=== PATIENT | male | born 1975 | race African-American/Black ===

== ENCOUNTER 2018-01-02 07:30 | Inpatient (IN) | payer OTHER ==
[~2018-01-02] VITALS: Ht 180.3 cm; Wt 101.2 kg
[~2018-01-02 07:30] MED LIST: Lidocaine 1% MPF 10mg/ml 5ml ONE; Midazolam 2mg/2ml Inj ONE; Phenylephrine 10mg/ml Vial ONE; ceFAZolin sod 2 GM in D5W 110 ML IVPB ONE; fentaNYL 100 mcg/2 mL IV ONE
--- NOTE | 2018-01-02 11:43 | Diagnostic Imaging Report ---
Indication: Back pain Comparison: None Findings: 3 views of the lumbar spine were obtained. There is mild anterolisthesis at L3-4. Mild narrowing of the disc noted at this level. The remainder the exam is negative. IMPRESSION: Mild anterolisthesis at L3-4
[2018-03-07] VITALS (8 sets, daily range): BP systolic 140–167; BP diastolic 79–92
[2018-03-07] MEDS ORDERED: ceFAZolin sod 2 GM in D5W 110 ML IVPB ONE (07:00)
[2018-03-07] MEDS ORDERED: Gelfoam Size TOPIC ONE (10:10)
[2018-03-07] MEDS ORDERED: Bupivacaine w/Epi 0.5% 30ml Vial INJ ONE (10:10)
[2018-03-07] MEDS ORDERED: Bacitracin 50000 Units Vial ONE ×2 (10:10→14:43)
[2018-03-07] MEDS ORDERED: Vancomycin 1gm vial IVPB ONE (10:10)
[2018-03-07] MEDS ORDERED: Heparin 1000 units/ml 1ml Vial ONE (10:13)
[2018-03-07] MEDS ORDERED: Thrombin 5000 units TOPIC ONE (10:18)
[2018-03-07] MEDS ORDERED: IBUPROFEN600 MG ORAL (11:12)
[2018-03-07] MEDS ORDERED: GABAPENTIN300 MG ORAL (11:12)
[2018-03-07] MEDS ORDERED: TRUVADA 200 MG1 EAC1 ORAL (11:12)
[2018-03-07] MEDS ORDERED: TRAMADOL HCL50 MG ORAL (11:12)
--- NOTE | 2018-03-07 12:06 | Anethesia Preoperative Eval ---
Wanda Paz MD 03/07/18 1206: Anesthesia Pre-op PMH/ROS General Date of Evaluation: Mar 07, 2018 Anesthesiologist: Todd ASA Score: ASA 1 Mallampati Score Class I : Soft palate, uvula, fauces, pillars visible Class II: Soft palate, uvula, fauces visible Class III: Soft palate, base of uvula visible Class IV: Only hard plate visible Mallampati Classification: Class II Surgeon: Harlan Diagnosis: Lumbar radiculopathy Surgical Procedure: TLIF L3-4 Anesthesia History: none Family History: no anesthesia problems Allergies: Coded Allergies: No Known Allergies (Unverified , 12/25/17) Patient NPO?: Yes NPO Date: Mar 06, 2018 NPO Time: 2358 Past Medical History Cardiovascular: Denies: HTN, CAD, NH, valve dz, arrhythmia, other Pulmonary: Denies: asthma, COPD, NKECHI, other Gastrointestinal/Genitourinary: Denies: GERD, CRI, ESRD, other Neurologic/Psychiatric: Denies: dementia, CVA, depression/anxiety, TIA, other Endocrine: Denies: DM, hypothyroidism, steroids, other HEENT: Denies: cataract (L), cataract (R), glaucoma, KOBUK (L), KOBUK (R), other Hematology/Immune: Denies: anemia, DVT, bleeding disorder, other Musculoskeletal/Integumentary: Denies: OA, RA, DJD, DDD, edema, other PSxH Narrative: Denies Anesthesia Pre-op Phys. Exam Physician Exam Last Vital Signs Date Time Temp Pulse Resp B/P (MAP) Pulse Ox O2 Delivery O2 Flow Rate FiO2 03/07/18 11:30 97.8 86 20 140/83 (102) 97 03/07/18 10:59 Room Air Constitutional: NAD Cardiovascular: RRR Respiratory: CTA Airway Exam Mallampati Score: Class II MO: limited ROM: full Teeth: intact Anesthesia Pre-op A/P Labs see chart Studies Pre-op Studies: EKG - sr Risk Assessment & Plan Assessment: ASA I Plan: GA Status Change Before Surgery: No Pre-Antibiotics Drug: Ron Morales MD 03/07/18 1520: Anesthesia Pre-op PMH/ROS General Allergies: Coded Allergies: No Known Allergies (Unverified , 12/25/17) Past Medical History Other: obesity - BMI 33 Wanda Paz MD Mar 07, 2018 12:06 Ron Ruiz MD Mar 07, 2018 15:20
[2018-03-07] MEDS ORDERED: Zemuron 50mg/5ml Inj IV ONE (12:28)
[2018-03-07] MEDS ORDERED: fentaNYL 100 mcg/2 mL IV ONE ×2 (12:29→16:16)
[2018-03-07] MEDS ORDERED: Midazolam 2mg/2ml Inj ONE ×2 (12:29→14:32)
[2018-03-07] MEDS ORDERED: Lidocaine 1% MPF 10mg/ml 5ml ONE (12:29)
[2018-03-07] MEDS ORDERED: NS Irrig 1000ml ONE (12:30)
[2018-03-07] MEDS ORDERED: LR 1000ml ONE (12:30)
[2018-03-07] MEDS ORDERED: Sterile Water Irrig 1000ml IRRIG ONE (12:30)
[2018-03-07] MEDS ORDERED: Propofol 1,000mg/ 100ml btl IV ONE (12:30)
--- NOTE | 2018-03-07 12:45 | Pre-Procedure Note/Attestation ---
Pre-Procedure Note/Attestation Complete Prior to Procedure Procedure Narrative: TLIF L34 with iliac bone marrow aspiration, posterolateral fusion, instrumentation, decompression Indications for Procedure Pre-Operative Diagnosis: lumbar radiculopathy and instability L34 Attestation I attest that I discussed the nature of the procedure; its benefits; risks and complications; and alternatives (and the risks and benefits of such alternatives ), prior to the procedure, with the patient (or the patient's legal financial representative). I attest that, if there was a reasonable possibility of needing a blood transfusion, the patient (or the patient's legal financial representative) was given the [facility] standardized written summary, pursuant to the Bashir [place] Blood Safety Act ([place] Health and Safety Code # 1645, as amended). I attest that I re-evaluated the patient just prior to the surgery and that there has been no change in the patient's H&P, except as documented below: Armond Claros MD Mar 07, 2018 12:45
[2018-03-07] MEDS ORDERED: Dexamethasone 4mg/ml vial ONE (14:31)
[2018-03-07] MEDS ORDERED: Lidocaine 1% Plain 30 ml INJ ONE (14:44)
[2018-03-07] MEDS ORDERED: Neostigmine 1mg/ml 10ml Inj ONE (14:44)
[2018-03-07] MEDS ORDERED: Glycopyrrolate 0.2mg/ml 1ml Vial ONE (14:44)
[2018-03-07] MEDS ORDERED: LR 1000ml 1,000 ML IVLG SCH (15:18)
--- NOTE | 2018-03-07 15:22 | Immediate Post-Op Evaluation ---
Immediate Post-Op Evalulation Immediate Post-Op Evalulation Procedure: TLIF L3-4 Date of Evaluation: Mar 07, 2018 Time of Evaluation: 17:55 IV Fluids: 1000 LR Blood Products: 0 Estimated Blood Loss: 150 Urinary Output: 200 Blood Pressure Systolic: 147 Blood Pressure Diastolic: 79 Pulse Rate: 90 Respiratory Rate: 16 O2 Sat by Pulse Oximetry: 100 Temperature (Fahrenheit): 99.5 Pain Score (1-10): 3 Nausea: No Vomiting: No Complications 0 Patient Status: awake, reacts, patent, extubated, none Hydration Status: adequate Dru Grams Ancef IV Given Within 1 Hr of Incision: Yes Time Given: 12:46 Ron Ruiz MD Mar 07, 2018 15:22
[2018-03-07] MEDS ORDERED: Ketorolac 30mg Inj IV PRN ×2 (15:30)
[2018-03-07] MEDS ORDERED: HYDROcodone/Acetamin 7.5/325 tab ORAL PRN (15:30)
[2018-03-07] MEDS ORDERED: Meperidine 50mg/ml Inj(FOR RIGORS ONLY) IVP PRN (15:30)
[2018-03-07] MEDS ORDERED: Hydromorphone 0.5mg/0.5ml inj IVP PRN (15:30)
[2018-03-07] MEDS ORDERED: fentaNYL 100 mcg/2 mL IV PRN (15:30)
[2018-03-07] MEDS ORDERED: LORazepam Inj 2mg/ml 1ml IV PRN (15:30)
[2018-03-07] MEDS ORDERED: Acetaminophen (Non formulary) 100 ML IV ONE (15:30)
[2018-03-07] MEDS ORDERED: oxyCODONE HCL/Acetaminophen 5/325mg ORAL PRN (15:30)
[2018-03-07] MEDS ORDERED: Metoclopramide 10mg/2ml Inj IVP PRN (15:30)
[2018-03-07] MEDS ORDERED: Norco 5mg/325mg tab ORAL PRN ×2 (15:30→17:45)
[2018-03-07] MEDS ORDERED: DiphenhydrAMINE 50mg/ml Inj IVP PRN (15:30)
[2018-03-07] MEDS ORDERED: Atropine Sulfate 0.4mg/ml inj IVP PRN (15:30)
[2018-03-07] MEDS ORDERED: Midazolam 2mg/2ml Inj IVP PRN (15:30)
[2018-03-07] MEDS ORDERED: Naloxone 0.4mg/ml Inj ONE (16:48)
--- NOTE | 2018-03-07 17:19 | Brief Operative Note ---
Immediate Post Operative Note Operative Note Pre-op Diagnosis: lumbar radiculopathy and instability L34 Procedure: TLIF L34 with iliac bone marrow aspiration Post-op Diagnosis: same as pre-op Findings: consistent w/pre-op dx studies Surgeon: Harlan [employer] Supervisor: Scott Anesthesiologist: Maximo Anesthesia: general Specimen: yes - L34 disc Complications: none Condition: stable Fluids: 1l Estimated Blood Loss: minimal - 150cc Drains: hemovac Implant(s) used?: Yes - Nuvasive adn RTI interbody Armond Claros MD Mar 07, 2018 17:19
[2018-03-07] MEDS ORDERED: HYDROmorphone 1mg/ml Carpuject SUBQ PRN (17:45)
--- NOTE | 2018-03-07 18:45 | Diagnostic Imaging Report ---
INDICATION: Pain, intraoperative TECHNIQUE: Intraoperative imaging Fluoroscopy time: 28.5 seconds Total dose: 0.41343 mGym2 Total number of images: 2 COMPARISON: None FINDINGS: Intraoperative images demonstrate posterior fusion hardware bridging L3 and L4, with an intervening disc spacer IMPRESSION: Intraoperative imaging, as described
[2018-03-07] MEDS: D5 1/2NS 1,000 ML IV SCH (20:12)
[2018-03-08] VITALS: BP 144/71
[2018-03-08] MEDS: ceFAZolin sod 1 GM in D5W 55 ML IVPB SCH ×3 (00:02→16:04)
[2018-03-08 04:00] VITALS: BP 144/71
[2018-03-08] MEDS: D5 1/2NS 1,000 ML IV SCH ×2 (04:59→16:04)
--- NOTE | 2018-03-08 06:43 | 48 Hour Post Anesthesia Eval ---
Post Anesthesia Evaluation Procedure: TLIF L3-4 Date of Evaluation: Mar 08, 2018 Time of Evaluation: 06:10 Blood Pressure Systolic: 144 0: 71 Pulse Rate: 91 Respiratory Rate: 19 Temperature (Fahrenheit): 98.7 O2 Sat by Pulse Oximetry: 94 Airway: patent Nausea: No Vomiting: No Pain Intensity: 0 Hydration Status: adequate Cardiopulmonary Status: at baseline Mental Status/LOC: patient returned to baseline Post-Anesthesia Complications: 0 Follow-up care needed: N/A - further care as per primary team Wanda Paz MD Mar 08, 2018 06:43
[2018-03-08 07:03] LABS: BASOPHILS % (AUTO) 0.3 % (0.0-2.0); HEMATOCRIT 36.1 % (42.0-52.0); HEMOGLOBIN 12.1 G/DL (14.2-18.0); LYMPHOCYTES % (AUTO) 12.8 % (20.0-45.0); MEAN CORPUSCULAR VOLUME 88 FL (80-99); MONOCYTES % (AUTO) 5.3 % (1.0-10.0); NEUTROPHILS % (AUTO) 81.6 % (45.0-75.0); PLATELET COUNT 267 K/UL (150-450); RED BLOOD COUNT 4.11 M/UL (4.70-6.10); RED CELL DISTRIBUTION WIDTH 11.2 % (11.6-14.8)
[2018-03-08 08:00] VITALS: BP 118/62
[2018-03-08 12:00] VITALS: BP 118/64
[2018-03-08 16:00] VITALS: BP 134/72
--- NOTE | 2018-03-08 18:11 | General Progress Note ---
Subjective Allergies: Coded Allergies: No Known Allergies (Unverified , 12/25/17) Subjective Pt doing well ambulating with a walker. Minimal LBP and no leg pain AVSS A and O times 3 HV 150... will keep in 5/5 motor in the UE and the LE calves soft and NT LT intact in the LE Inc dressing cdi Stable post op OOB/PT urination check ambulate keep HV Prob dc tomorrow medicine follow up Objective Last 24 Hour Vital Signs Date Time Temp Pulse Resp B/P (MAP) Pulse Ox O2 Delivery O2 Flow Rate FiO2 03/08/18 16:00 98.7 90 20 134/72 (92) 98 03/08/18 14:28 Room Air 03/08/18 12:00 98.8 78 20 118/64 (82) 99 03/08/18 09:00 Room Air 03/08/18 08:00 98.6 65 20 118/62 (80) 98 03/08/18 06:43 91 19 94 03/08/18 04:00 98.7 91 19 144/71 (95) 94 03/08/18 00:00 98.6 66 19 144/71 (95) 97 03/07/18 21:29 Nasal Cannula 2.0 28 03/07/18 21:29 97 Nasal Cannula 2.0 28 03/07/18 21:00 Room Air 03/07/18 20:00 98.3 90 19 143/87 (105) 99 03/07/18 18:45 98.2 82 15 153/86 100 Simple Mask 3 03/07/18 18:30 85 19 149/85 100 Simple Mask 3 03/07/18 18:15 89 15 165/89 100 Simple Mask 3 Intake and Output 03/07/18 03/08/18 19:00 07:00 Intake Total 250 ml 900 ml Output Total 375 ml 1060 ml Balance -125 ml -160 ml Intake Oral 0 ml IV Total 250 ml 900 ml Output Urine Total 300 ml 850 ml Drainage Total 75 ml 210 ml Laboratory Tests 03/08/18 05:20: White Blood Count 14.0H, Red Blood Count 4.11L, Hemoglobin 12.1L, Hematocrit 36.1L, Mean Corpuscular Volume 88, Mean Corpuscular Hemoglobin 29.5, Mean Corpuscular Hemoglobin Concent 33.5, Red Cell Distribution Width 11.2L, Platelet Count 267, Mean Platelet Volume 8.1, Neutrophils (%) (Auto) 81.6H, Lymphocytes (%) (Auto) 12.8L, Monocytes (%) (Auto) 5.3, Eosinophils (%) (Auto) 0.0, Basophils (%) (Auto) 0.3 Height (Feet): 5 Height (Inches): 11.00 Weight (Pounds): 223 Armond Claros MD Mar 08, 2018 18:11
[2018-03-08 20:00] VITALS: BP 140/68
[2018-03-09] VITALS: BP_SYST 122; BP_SYST 140; BP_DIAS 65; BP_DIAS 68
--- NOTE | 2018-03-09 00:45 | Operative Note - Dictated ---
DATE OF OPERATION: 03/07/2018 PREOPERATIVE DIAGNOSIS: L3-L4 disk protrusion with annular fissure, stenosis, radiculopathy, and instability with motion on flexion and extension x-ray. POSTOPERATIVE DIAGNOSIS: L3-L4 disk protrusion with annular fissure, stenosis, radiculopathy, and instability with motion on flexion and extension x-ray. PROCEDURES PERFORMED: 1. Posterior interbody fusion at L3-L4. 2. Posterior pedicle screw instrumentation at L3-L4. 3. Posterolateral arthrodesis at L3-L4. 4. Laminectomy at L3-L4. 5. Insertion of biomechanical device at L3-L4 with allograft and local autograft and bone marrow aspirate concentrate. 6. Right-sided posterior iliac bone marrow aspiration. 7. Intraoperative use of microscope. SURGEON: Armond Claros M.D. PUBLIC HEALTH ADMINISTRATOR: Cooper Chavez M.D. ANESTHESIOLOGIST: Dr. Avendano and Ron Ruiz M.D. ANESTHESIA: General endotracheal anesthesia. INTRAOPERATIVE FINDINGS: Bilateral pars fracture at L3-L4 with Alva fragment and foraminal stenosis for the exiting L3 nerve and lateral recess stenosis for the traversing L4 nerve. ESTIMATED BLOOD LOSS: 150 mL. FLUIDS: 1 liter of crystalloid. INDICATIONS: The patient has failed nonoperative treatment and option for above treatment was given. Flexion and extension x-rays revealed dimple instability at L3-L4 and the patient wished to proceed. Risks, alternatives, and benefits were discussed with the patient at length. Risks include, but are not limited to anesthesia; complications including ; and medical complications including liver, kidney, cardiopulmonary deficits, bleeding, infection, dural tear, CSF leak, nerve root injury, pars fracture, instability, reherniation as well as continued symptoms. DESCRIPTION OF OPERATION: The patient was brought into the operating room supine on a stretcher. Subsequently, appropriate IV lines were placed and 2 g of Ancef was administered. A surgical time-out was called. Anesthesia was induced. The patient was successfully intubated. Sequential compression devices were placed onto the bilateral lower extremities. A Enamorado was placed under sterile condition. The patient was gently turned over onto the Yves frame table. All bony prominences were well padded and the abdomen was assured to lay freely. The L3-4 interspace was preoperatively positively identified and an indelible froy was used to froy the midline at L3-L4. The patient was prepped and draped in usual sterile fashion with alcohol, chlorhexidine scrub, ChloraPrep, and Ioban draping. The posterior iliac crest was also prepped and draped in the usual sterile fashion. At this point, a midline incision was carried out over the L3-L4 interspace in a subperiosteal dissection of the L3-L4 level including the transverse processes, the lamina as well as the facet joints was done. The facet joint capsule through the L2-L3 facet joint was well preserved. At this point, a radiopaque marker was placed at the pedicle level and the lower pedicle at L3-L4, the L4 pedicle was positively identified and thus the L3-L4 level was positively identified. At this point, dissection below the subdermal layer and above the dorsolumbar fascia was done and palpation of the posterior superior iliac crest on the right side was accomplished and a Jamshidi needle was used to penetrate the posterior superior iliac crest and three 10 mL vial of bone marrow was aspirated and sent off sterilely for concentration. Once this was accomplished, now attention was diverted to doing a Alva laminectomy as there were bilateral pars fractures at the L3 level. With a Leksell rongeur, curved and straight curettes, a high-speed drill, as well as #2 through #5 Kerrison punches, a Alva laminectomy was accomplished as well as a radical superior and inferior left-sided facetectomies including the left superior articular facet and the left inferior articular facet on the left side for a complete decompression of the lateral recess and foraminal region with a complete bony removal pedicle to pedicle on the left side at L3 to L4. The exiting L3 nerve was completely decompressed and was found to be exiting the neural foramina appropriately without any decompression for stenosis. Once this was accomplished, attention was diverted to the disk space. There was extensive amount of epidural veins and bipolar cautery, Gelfoam, thrombin, and FloSeal was used to control the bleeding. Once this was accomplished, the disk space was found. There was a disk protrusion, central and left paracentral at L3-L4 and a box incision was made in the posterior annulus with a #11 blade and with disk preparation instruments including domonique, box curettes, oval curettes, and rasp as well as pituitary rongeurs, Peapod, Marie, dental, and a radical diskectomy was done at L3-L4. Endplate cartilage was removed. Endplate bone was well preserved. With the shaver, instrument depth sizing was done, and at this point, attention was diverted to placing the pedicle screws. The mammillary processes were identified bilaterally at L3 and L4, and with a high-speed drill, the center of the mammillary processes were drilled and with pedicle finders, the center of the pedicles were found and ball-tip probes was used. There was no cortical breaches. Appropriate caps were used to tap the pedicle and then ball-tip probe again was used. There were no cortical breaches and attention was diverted to placement of the pedicle screws from the [employer] System at L3 bilaterally, 6.5 x 50 mm screws were placed at L4 bilaterally and 6.5 x 65 mm screws were placed and each screw had excellent purchase and was found to be in excellent position via biplanar fluoroscopy. Stimulus-evoked EMG was done up to 20 milliamps of current and there was no current in the respective nerve roots and therefore the pedicle screws were found to be safe. Once this was done, on the right side distraction of the pedicles were done via a distractor and a temporary coral and set screws and thus the disk space was appropriately distracted for placement of the interbody device. A #10 mm x 26 mm leg length trial was used and was found to fit within the disk space appropriately with good recreation of disk height and excellent stability. The interbody device was chosen, which was an RTI 10 mm x 10 mm x 10 mm with 6 degrees of lordosis. RTI 3D tetrafuse Fortilink device was chosen and was packed with bone morphogenic protein, Fisher allograft, and local autograft as well as bone marrow aspirate concentrate and tamped into place at L3-L4 interbody space with excellent recreation of height apposition against the endplates, and at this point the temporary coral was removed and distraction was released and the interbody device was found to be sitting in an excellent fashion in the interbody space with excellent apposition against the endplate and excellent stability. Once this was accomplished, now attention was diverted to the pedicle screw system. Please note that microdissection of the exiting and traversing nerve roots as well as the common dural sac and neural elements was done with the aid of a intraoperatively sterilely draped microscope. Once this was accomplished, appropriate sidewall and set screws were placed at L3 and L4 pedicles and set screws were torqued appropriately and final AP and lateral fluoroscopy revealed all instrumentation to be in excellent position. Now, attention was diverted to doing the posterolateral arthrodesis on the right side. The right superior and inferior articular facets were left intact to aid in the posterolateral fusion. Appropriate decortication of the transverse processes as well as the superior and inferior articular facet on the right side was done and local autograft, allograft, and bone marrow aspirate concentrate was placed on the right side over the decorticated areas. A 4 mL of Tisseel was placed at the posterior annulotomy site to prevent migration of the bone morphogenic protein. Once this was done, attention was diverted to the closure and protection. Before the placement of bone graft and seal, copious triple antibiotic irrigation was used to wash the wound and this was done multiple times during the case. Perioperatively, an additional gram of Ancef was administered for a total of 3 g of Ancef. Once this was accomplished, now attention was diverted to final AP and lateral fluoroscopy images, which showed all instrumentation to be in excellent position. A subfascial Hemovac drain was placed. The dorsal lumbar fascia was closed with #1 Vicryl sutures in a watertight interrupted fashion. The subdermal and subcuticular layers were closed with 2-0 Vicryl sutures. The skin was closed with Dermabond. Sterile dressing tape was placed. All sponge, needle, and instrument counts were correct. The patient was turned supine, was extubated in stable condition, was found to be neurovascularly intact. He was taken to the recovery room for monitoring and subsequent inpatient admission. Armond Claros M.D. DR: HENOK JOB#: [id number] CC: ROME
[2018-03-09] MEDS: HYDROmorphone 1mg/ml Carpuject IVP PRN ×2 (00:50→21:21)
[2018-03-09] MEDS: D5 1/2NS 1,000 ML IV SCH ×3 (01:58→20:56)
[2018-03-09 04:00] VITALS: BP 123/61
[2018-03-09] MEDS: HYDROcodone/Acetamin 7.5/325 tab ORAL PRN ×2 (04:55→10:06)
[2018-03-09 08:00] VITALS: BP 131/70
[2018-03-09 12:00] VITALS: BP 111/67
[2018-03-09] MEDS ORDERED: D5 1/2NS 1000ml IV ONE (14:07)
[2018-03-09 16:00] VITALS: BP 116/68
--- NOTE | 2018-03-09 16:34 | General Progress Note ---
Subjective Allergies: Coded Allergies: No Known Allergies (Unverified , 12/25/17) Subjective Pt doing well ambulating with a walker. Minimal LBP and no leg pain AVSS A and O times 3 HV 150... will keep in 5/5 motor in the UE and the LE calves soft and NT LT intact in the LE Inc dressing cdi Stable post op OOB/PT urination check ambulate keep HV Prob dc tomorrow medicine follow up Objective Last 24 Hour Vital Signs Date Time Temp Pulse Resp B/P (MAP) Pulse Ox O2 Delivery O2 Flow Rate FiO2 03/09/18 15:21 100.3 03/09/18 13:00 100.3 03/09/18 13:00 100.3 03/09/18 12:00 100.7 84 18 111/67 (82) 100 03/09/18 10:36 99.8 03/09/18 09:32 Nasal Cannula 2.0 28 03/09/18 09:32 98 Nasal Cannula 2.0 28 03/09/18 08:51 Room Air 03/09/18 08:00 99.8 94 18 131/70 (90) 95 03/09/18 06:00 100.0 03/09/18 05:00 101.0 03/09/18 04:00 100.1 96 18 123/61 (81) 96 03/09/18 01:20 101.2 03/09/18 01:20 98.7 03/09/18 00:00 100.0 96 17 122/65 (84) 96 03/09/18 00:00 98.7 96 20 140/68 (92) 96 03/08/18 21:00 Room Air 03/08/18 21:00 Nasal Cannula 2.0 28 03/08/18 21:00 96 Nasal Cannula 2.0 28 03/08/18 20:00 99.9 96 20 140/68 (92) 98 Intake and Output 03/08/18 03/09/18 19:00 07:00 Intake Total 2100 ml Output Total 1470 ml 80 ml Balance -1470 ml 2020 ml Intake Oral 900 ml IV Total 1200 ml Output Urine Total 1300 ml Drainage Total 170 ml 80 ml # Voids 1 4 Height (Feet): 5 Height (Inches): 11.00 Weight (Pounds): 223 Armond Claros MD Mar 09, 2018 16:34
[2018-03-09 17:36] LABS: BASOPHILS % (AUTO) 1.5 % (0.0-2.0); EOSINOPHILS % (AUTO) 1.5 % (0.0-3.0); HEMATOCRIT 32.4 % (42.0-52.0); LYMPHOCYTES % (AUTO) 24.9 % (20.0-45.0); MEAN CORPUSCULAR VOLUME 88 FL (80-99); MONOCYTES % (AUTO) 8.3 % (1.0-10.0); NEUTROPHILS % (AUTO) 63.9 % (45.0-75.0); PLATELET COUNT 207 K/UL (150-450); RED BLOOD COUNT 3.67 M/UL (4.70-6.10); WHITE BLOOD COUNT 12.7 K/UL (4.8-10.8)
[2018-03-09 18:17] LABS: ANION GAP 7 mmol/L (5-15); BLOOD UREA NITROGEN 11 mg/dL (7-18); CALCIUM 8.5 MG/DL (8.5-10.1); CARBON DIOXIDE 31 MMOL/L (21-32); CHLORIDE 100 MMOL/L (98-107); CREATININE 1.2 MG/DL (0.55-1.30); POTASSIUM 3.3 MMOL/L (3.5-5.1); SODIUM 138 MMOL/L (136-145)
[2018-03-09 20:00] VITALS: BP 127/67
[2018-03-10] VITALS: BP 131/67
--- NOTE | 2018-03-10 02:00 | Progress Note ---
DATE: 03/09/2018 SUBJECTIVE: The patient is doing well. He has intermittent postoperative fevers, has been getting Tylenol for the fever. He is ambulating well. His back pain is improving. He has no neck pain. He has been ambulating and eating. OBJECTIVE: Temperature is 100.3. He is alert and oriented x3. The dressing was removed. Incision was clean, dry, and intact. There is no erythema. Hemovac was discontinued. New dressing was placed. Bilateral lower extremities 5/5 and calves are soft and nontender. Light could be intact in the lower extremities. Abdomen is soft and nontender. LABORATORY DATA: Pending for today. ASSESSMENT: The patient is doing well postoperatively with intermittent fevers. PLAN: Continue with Tylenol. I would like him to continue to ambulate, do physical therapy. We are pending CBC and chemistries. I would like him to increase inspirotory spirometer and we will continue to monitor his temperatures. I will also order CXR and UA. Inc is cdi with no evidence of infection Armond Claros M.D. DR: CANDE JOB#: [id number] CC: ROME
[2018-03-10 04:00] VITALS: BP 120/74
[2018-03-10] MEDS: HYDROmorphone 1mg/ml Carpuject IVP PRN (04:01)
[2018-03-10 05:20] LABS: APPEARANCE,URINE CLEAR; BILIRUBIN, URINE NEGATIVE (NEGATIVE); COLOR,URINE PALE YELLOW; GLUCOSE, URINE (UA) NEGATIVE (NEGATIVE); KETONES,URINE NEGATIVE (NEGATIVE); LEUKOCYTE ESTERASE ,URINE NEGATIVE (NEGATIVE); NITRITE,URINE NEGATIVE (NEGATIVE); PH,URINE 6 (4.5-8.0); PROTEIN,URINE NEGATIVE (NEGATIVE); UROBILINOGEN,URINE NORMAL MG/DL (0.0-1.0)
[2018-03-10] MEDS: D5 1/2NS 1,000 ML IV SCH ×2 (06:04→18:14)
[2018-03-10 06:51] LABS: ANION GAP 8 mmol/L (5-15); BASOPHILS % (AUTO) 1.1 % (0.0-2.0); BLOOD UREA NITROGEN 7 mg/dL (7-18); CALCIUM 8.3 MG/DL (8.5-10.1); CARBON DIOXIDE 27 MMOL/L (21-32); CHLORIDE 101 MMOL/L (98-107); CREATININE 1.2 MG/DL (0.55-1.30); EOSINOPHILS % (AUTO) 1.1 % (0.0-3.0); HEMATOCRIT 28.9 % (42.0-52.0); HEMOGLOBIN 9.9 G/DL (14.2-18.0); MEAN CORPUSCULAR VOLUME 87 FL (80-99); MONOCYTES % (AUTO) 8.1 % (1.0-10.0); NEUTROPHILS % (AUTO) 69.7 % (45.0-75.0); PLATELET COUNT 183 K/UL (150-450); POTASSIUM 3.2 MMOL/L (3.5-5.1); RED BLOOD COUNT 3.31 M/UL (4.70-6.10); RED CELL DISTRIBUTION WIDTH 10.9 % (11.6-14.8); SODIUM 136 MMOL/L (136-145); WHITE BLOOD COUNT 11.6 K/UL (4.8-10.8)
[2018-03-10 08:00] VITALS: BP 115/51
--- NOTE | 2018-03-10 10:25 | Diagnostic Imaging Report ---
EXAM: XR Chest, 1 View CLINICAL HISTORY: POST-OP TECHNIQUE: Frontal view of the chest. COMPARISON: No relevant prior studies available. FINDINGS: Lungs: Unremarkable. No consolidation. Pleural space: Unremarkable. No pneumothorax. Heart: Unremarkable. No cardiomegaly. Mediastinum: Unremarkable. Bones/joints: Unremarkable. IMPRESSION: No acute process.
[2018-03-10] MEDS ORDERED: Tubing IV Secondary IV ONE (10:49)
[2018-03-10 12:00] VITALS: BP 130/57
[2018-03-10] MEDS: Docusate 100mg cap ORAL SCH ×2 (12:47→17:15)
[2018-03-10 16:00] VITALS: BP 147/81
[2018-03-10 20:00] VITALS: BP 125/74
[2018-03-10] MEDS: HYDROcodone/Acetamin 10/325 tab ORAL PRN (20:47)
[2018-03-11] VITALS: BP 114/62
[2018-03-11] MEDS: HYDROcodone/Acetamin 10/325 tab ORAL PRN ×4 (02:24→15:47)
[2018-03-11 04:00] VITALS: BP 114/56
[2018-03-11 08:00] VITALS: BP 123/62
[2018-03-11] MEDS: Docusate 100mg cap ORAL SCH ×3 (08:51→18:39)
[2018-03-11 12:00] VITALS: BP 110/66
[2018-03-11] MEDS ORDERED: Propofol 1,000mg/ 100ml btl IV ONE (12:30)
[2018-03-11] MEDS ORDERED: NS Irrig 1000ml ONE (12:30)
[2018-03-11] MEDS ORDERED: LR 1000ml ONE (12:30)
[2018-03-11] MEDS ORDERED: Sterile Water Irrig 1000ml IRRIG ONE (12:30)
[2018-03-11 16:00] VITALS: BP 119/72
--- NOTE | 2018-03-11 18:15 | Progress Note ---
DATE: 03/11/2018 SUBJECTIVE: The patient is doing well. He is ambulating. He is using the rest room. His pain level was much improved. His pain is well tolerated. OBJECTIVE: Temperature is 98. Vital signs are stable. Incision is clean, dry, and intact. Dressing was removed. Motor examination of the lower extremity is 5/5. Calves are soft and nondense. There is no swelling or drainage about the incision. PLAN: The patient is doing well postoperatively. Discussion, the patient also had a chest x-ray, which showed no acute pulmonary process. His urinalysis revealed no evidence of infection. He is feeling well. At this point, we will discharge him with discharge instructions. No lifting, bending, stooping, no lifting. Follow up in seven days. He may shower in two days and we also gave him a prescription for [place] and Naprosyn. Armond Claros M.D. DR: EMERITA JOB#: [id number] CC: ROME
--- NOTE | 2018-03-13 14:04 | Discharge Summary ---
Discharge Summary Hospital Course Date of Admission Mar 07, 2018 at 10:21 Date of Discharge Mar 11, 2018 at 19:21 Admitting Diagnosis Lumbar radiculopathy and instability L3-4 Reason for Hospitalization: elective surgery HPI Reynaldo Beltran is a 43 year old male who was admitted on Mar 07, 2018 at 10:21 for Lumbar radiculopathy and instability L3-4. Patient was admitted for elective surgery Procedures s/p 03/07/[address] Claros 1. Posterior interbody fusion at L3-L4. 2. Posterior pedicle screw instrumentation at L3-L4. 3. Posterolateral arthrodesis at L3-L4. 4. Laminectomy at L3-L4. 5. Insertion of biomechanical device at L3-L4 with allograft and local autograft and bone marrow aspirate concentrate. 6. Right-sided posterior iliac bone marrow aspiration. 7. Intraoperative use of microscope. Hospital Course status post surgery initially IV fluids s/p perioperative antibiotics neurovascular status closely monitored, stable incision with dressing clean, dry, and intact pain management was addressed pain controlled hemodynamically stable ambulated with PT fall precautions maintained; safe for ambulation Hemovac with high output initially , output closely monitored, Hemovac discontinued when output diminished patient with intermittent low grade fevers ambulation was encouraged incentive spirometry was taught and encouraged q 1 hr while in the bed times 10 CXR revealed no acute cardiopulmonary pathology UA negative leukocytosis trending down fevers resolved tolerated diet , IV fluids discontinued GI prophylaxis provided antiemetics were on board as needed voided freely bowel regimen instituted patient was stable for discharge discharge instructions provided follow up with surgeon in 7 days as recommended FINAL DIAGNOSES L3-L4 disk protrusion with annular fissure, stenosis, radiculopathy, and instability with motion (on flexion and extension x-ray ) s/p TLIF L34 with iliac bone marrow aspiration Discharge Medications Continued Medications: Emtricitabine/Tenofovir 200-300MG* (Truvada 200-300MG*) 1 Each Tablet 1 TAB ORAL DAILY, TAB (This prescription has been renewed) Gabapentin* (Gabapentin*) 300 Mg Capsule 300 MG ORAL THREE TIMES A DAY, CAP 0 Refills (This prescription has been renewed ) Ibuprofen* (Motrin*) 600 Mg Tablet 800 MG ORAL THREE TIMES A DAY, #30 TAB 0 Refills (This prescription has been renewed) Tramadol Hcl* (Ultram*) 50 Mg Tablet 50 MG ORAL Q6H PRN for For Pain, #30 TAB 0 Refills (This prescription has been renewed) Discharge Condition Upon Discharge: stable Discharge Disposition Patient was discharged to Home (01) Discharge Instructions Discharge Instructions Special Instructions I have been assigned to complete a D/C Summary on this account. I was not involved in the patient management Laila De La Rosa NP Mar 13, 2018 14:04
== END 2018-03-11 19:21 | disposition home or self-care (01) | DRG 455 ==
LOC: SDSOVERFLO 09:49 → UNDOADMIN 09:49 → SDSOVERFLO 03-07 10:21 → 3E 03-07 19:00
PROC: 0SG00AJ Fusion of Lumbar Vertebral Joint with Interbody Fusion Device, Posterior Approach, Anterior Column, Open Approach (ICD-10-PCS; principal; 2018-03-07 12:30)
PROC: 07DR3ZZ Extraction of Iliac Bone Marrow, Percutaneous Approach (ICD-10-PCS; principal; 2018-03-07 12:30)
PROC: 3E0U0GB Introduction of Recombinant Bone Morphogenetic Protein into Joints, Open Approach (ICD-10-PCS; principal; 2018-03-07 12:30)
PROC: 0SG0071 Fusion of Lumbar Vertebral Joint with Autologous Tissue Substitute, Posterior Approach, Posterior Column, Open Approach (ICD-10-PCS; principal; 2018-03-07 12:30)
DX: M51.16 Intervertebral disc disorders with radiculopathy, lumbar region (principal); M48.061 Spinal stenosis, lumbar region without neurogenic claudication; E66.9 Obesity, unspecified; M53.2X6 Spinal instabilities, lumbar region
CPT/HCPCS: 36415; 71045; 72020; 72110; 76001; 80048; 81001; 85025; 87081; 94003; 94150; 94760; J2250; J2370; J2405; J2710; J8499